=== PATIENT | male | born 1950 | race Caucasian/White ===

== ENCOUNTER 2025-03-25 05:52 | Observation (INO) ==
--- NOTE | 2025-03-19 09:34 | Anesthesiology Consultation ---
Date of Service March 19, 2025 Assessment & Plan (1) Encounter for pre-operative examination: Chart Review Chart Review: Acceptable Risk for Surgery and Patient NOT seen in Pre Admission Testing Please reach out to patient's PCP regarding his hyponatremia seen since at least December 2024 (sodium 132). Will order BMP for DOS. Consults Requested none History Surgery Operation Date: 03/25/25 07:30 Proposed Procedures p Robotic Assisted Laparoscopic Radical Retropubioc Prostatectomy, Possible Open, Possible Pelvic Lymph Node Dissection - Delmer Chris MD Height/Weight Height: 6 ft Weight: 90.718 kg Allergies Allergy/AdvReac Type Severity Reaction Status Date / Time No Known Allergies Allergy Verified 03/18/25 08:57 Medications Home Medications Medication Instructions Recorded Confirmed Last Taken hydrochlorothiazide 25 mg tablet 25 mg PO HS 03/25/20 03/18/25 Unknown lisinopril 40 mg tablet 40 mg PO HS 03/25/20 03/18/25 Unknown wheat dextrin 3 gram/3.5 gram oral 1.5 gm PO QAM 03/25/20 03/18/25 Unknown powder packet (Benefiber Clear Sugar Free(dextrin)) aspirin 81 mg tablet,delayed 81 mg PO HS 05/28/21 03/18/25 Unknown release (Adult Low Dose Aspirin) hydroxychloroquine 200 mg tablet 400 mg PO HS 05/28/21 03/18/25 Unknown amlodipine 5 mg tablet 5 mg PO HS 09/30/24 03/18/25 Unknown metoprolol succinate 25 mg 12.5 mg PO HS 01/31/25 03/18/25 Unknown tablet,extended release 24 hr prednisone 5 mg tablet 5 mg PO HS 02/18/25 03/18/25 Unknown cholecalciferol (vitamin D3) 50 100 mcg PO HS 03/18/25 03/18/25 Unknown mcg (2,000 unit) capsule (Vitamin D3) nicotine 21 mg/24 hr daily 1 patch transdermal DAILY 03/18/25 03/18/25 Unknown transdermal patch Past Medical History Medical History (Updated 03/19/25 @ 09:32 by Von Camp MD) Encounter for pre-operative examination [place] (hard of hearing) Hx of colonic polyps Prostate cancer dx 01/22/25 thru bx. 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 Past Family History Family History Mother , age 47yo Stroke Ruptured cerebral aneurysm Hypertension Father , 57yo Diabetes Hypertension Cardiac arrest Myocardial infarction Brother COPD (chronic obstructive pulmonary disease) Hypertension Venous insufficiency Sister Cerebral aneurysm Stroke Hypertension Skin cancer Sister Asthma Sister Asthma Daughter No problems noted. Son Hypertension Past Surgical History Surgical History Hx of cardiac cath 2004, failed stress test, [facility], [facility], no stents ~2011, failed stress test, [facility], no stents; f/u [facility] cardiology History of esophagogastroduodenoscopy (EGD) Hx of colonoscopy History of cataract surgery Bilateral H/O left knee surgery Torn meniscus History of surgery Repair of torn right bicep tendon Social History Smoking Status: Former smoker Smoking cigarettes per day: 2 PPD x 20yrs Do You Dip or Chew Tobacco: Yes (uses pouches occasionally; advised) Smoking End Date: age [age] Hx Alcohol Use: Yes Alcohol type: beer alcohol intake frequency: 0-2 drinks per day Hx Substance Use: No substance use type: does not use Testing Laboratory Results Laboratory Tests 12/23/24 00:00 Sodium 132 L Potassium 3.9 Chloride 99 Carbon Dioxide 27.9 BUN 15.0 Creatinine 0.86 Glucose 98 03/06/25: WBC 10, hgb 15.3, hct 44.2, plt 275 Na 132, K 4, Cl 97, bicarb 24.5, BUN 15, creat 1, glucose 100. Electrocardiogram Date: 03/06/25 sinus nereida. HR 55. LVH. Chest X-Ray Date: 03/06/25 no acute cardiopulmonary disease. Other Testing nuclear Stress test 02/19/25: Based upon EKG criteria, this test is negative. The nuclear imaging findings there is fixed inferior and basal inferolateral wall defect likely related to diaphragm attenuation defect. Study is normal. Cardiac clearance for this patient is low cardiac risk. EF 54%.
[2025-03-25] MEDS ORDERED: LACTATED RINGER'S 1,000 ML IV SCH (06:00)
[2025-03-25] MEDS: LR 15ML/HR IV SCH (06:10)
[2025-03-25] MEDS: HEPARIN SOD 5,000 UNIT/0.5 ML VIAL SQ SCH ×2 (06:24→21:00)
[2025-03-25] MEDS ORDERED: DEXAMETHASONE SOD INJ 4 MG/ML VIAL ONE (06:43)
[2025-03-25] MEDS ORDERED: ROCURONIUM BROMIDE 10 MG/ML 5 ML VIAL IV ONE (06:43)
[2025-03-25] MEDS ORDERED: GLYCOPYRROLATE 0.2 MG/ML VIAL ONE (06:43)
[2025-03-25] MEDS ORDERED: LIDOCAINE 2% 2 ML VIAL/AMP(20MG/ML) INFIL ONE (06:43)
[2025-03-25] MEDS ORDERED: PROPOFOL IV EMULSION 10 MG/ML 20 ML VIAL IV ONE (06:43)
[2025-03-25] MEDS ORDERED: ONDANSETRON INJ 2 MG/ML 2 ML VIAL ONE (06:43)
[2025-03-25] MEDS ORDERED: MIDAZOLAM HCL 1 MG/ML 2ML VIAL ONE (06:44)
[2025-03-25] MEDS ORDERED: SUGAMMADEX SODIUM 200 MG/2 ML VIAL IV ONE (06:45)
[2025-03-25] MEDS ORDERED: ATROPINE SULFATE 0.1 MG/ML 10ML SYR IV PRN (06:57)
[2025-03-25] MEDS ORDERED: ONDANSETRON INJ 2 MG/ML 2 ML VIAL IV PRN ×2 (06:57→11:42)
[2025-03-25 06:58] LABS: Anion Gap 9.0 (3-11); Blood Urea Nitrogen 13.0 mg/dl (6-23); Calcium 9.6 mg/dl (8.6-10.3); Carbon Dioxide 27.0 mmol/L (21-32); Chloride 96.0 mmol/L (98-107); Creatinine Clr Calc Pharmacy 79.4 ml/min; Glucose 104.0 mg/dl (70-99(Fasting)); Potassium 4.1 mmol/L (3.5-5.1); Sodium 132.0 mmol/L (136-145)
[2025-03-25] MEDS ORDERED: HYDROmorphone INJ 2 MG/ML SYR/VIAL IV PRN (06:58)
[2025-03-25] MEDS ORDERED: PROMETHAZINE HCL 6.25 MG in SODIUM CHLORIDE 0.9% 50 ML IV PRN (06:58)
--- NOTE | 2025-03-25 07:21 | History & Physical Bridge Note ---
Date of Service March 25, 2025 History & Physical Bridge Note I have examined the patient, reviewed the History & Physical and in the interval since the performance of the History & Physical I have noted the following changes of clinical significance: no changes noted
[2025-03-25] MEDS: ceFAZolin 3000MG 3,000 MG/72.5 ML BAG IV SCH (07:35)
[2025-03-25] MEDS ORDERED: ePHEDrine sulfate 50 MG/5 ML SYR ONE (07:58)
[2025-03-25] MEDS: FLOSEAL HEMOSTATIC MATRIX 5ML TOP ONE (10:12)
[2025-03-25] MEDS: SURGICEL ABSORB HEMOSTAT 2IN X 14IN TOP ONE (10:13)
[2025-03-25] MEDS: BUPIVACAINE 0.5 % 5 MG/1 ML MPF 30ML VIAL ONE (10:16)
[2025-03-25] MEDS: BUPIVACAINE LIPOSOME 1.3% 266 MG/20 ML VIAL ONE (10:17)
--- NOTE | 2025-03-25 10:51 | Operative Report ---
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 Periprostatic fat 2. Prostate and seminal vesicles 3. Left pelvic lymph nodes 4. Right pelvic lymph nodes Description of Procedure The patient was identified in the preoperative holding area, appropriate informed consents were reviewed and completed, and he was transported to the operating suite. Subcutaneous heparin was administered in the pre-operative holding area. Upon arrival in the operating suite, he received appropriate antibiotics and general anesthesia. He was positioned in dorsal lithotomy, a B&O suppository was inserted after digital rectal exam, and he was prepped and draped in standard fashion. A Ceja catheter was inserted in the sterile field. A Veress needle was passed per umbilicus with uniform insufflation of the abdomen to 15mmHg. He was placed in steep Trendelenburg position. A periumbilical incision was then made to accommodate a 12mm Visiport with 10mm 0degree laparoscope. Inspection of the abdomen was carried out, and there was no evidence of traumatic entry or injury secondary to the Veress needle. After confirming a clear anterior abdominal wall, ports were subsequently placed in standard robotic prostatectomy fashion without incident. To begin the robotic portion of the case, the left lateral aspect of the sigmoid was mobilized off of the left pelvic side wall to allow the pouch of Panchito to be appropriately visualized. I then made an incision in the pouch of Panchito, overlying the seminal vesicles. Both SVs as well as the ampullae of the vasa were entirely dissected, with the vasa transected 3cm from the prostate. The medial umbilical ligaments were then controlled with bipolar electrocautery just inferior to the umbilicus. Following cauterization, they were divided utilizing monopolar cautery. A peritoneal incision was carried from this location to the medial aspect of the internal inguinal rings bilaterally with care to avoid opening through the ring. This incision was concluded when the vas deferens was reached. Dissection of the bladder and prostate off of the posterior aspect of the pubic arch was completed allowing full visualization of the prostate. The fat overlying the prostate was removed en bloc and passed off the table as a specimen labeled "periprostatic fat". The endopelvic fascia was cleared during this portion of the procedure, and subsequently opened - first on the right and then the left. The incision through the endopelvic fascia began near the prostate-bladder junction and was carried to the apex with extreme care to preserve all lateral levator musculature as well as the periurethral musculature and sphincter complex. I additionally preserved the puboprostatic ligaments. I then controlled the DVC with a 2-0 V-lock suture in overlapping/figure of 8 fashion. The lymph node dissection was then conducted. External iliac vessels were identified on the pelvic side wall. The packet of fat and lymphatic tissue that resides just under the iliac vein was elevated and off of the vein with a split and roll technique. The packet was dissected laterally to the circumflex vein and distally to the obturator nerve which was preserved. The proximal aspect of the packet was carried towards the bifurcation of the iliac vessels. A combination of monopolar and bipolar cautery were used to assist with control. After completing the dissection on both sides, the packets were collected and passed off of the table as specimens labeled "pelvic lymph nodes". My attention then returned to the prostate, with identification of the bladder neck aided by gentle traction on the Ceja catheter and lateral to medial pressure at the presumed level of the bladder neck with the robotic instruments. An anterior cystotomy was made, the Ceja balloon deflated and the catheter guided through the incision to allow anterior retraction. I attempted to preserve maximal bladder neck musculature as I circumferentially dissected around the bladder neck. After incision through the posterior aspect of the mucosa, the dissection was carried through detrusor muscle until the previously dissected bilateral ampullae of the vasa were identified and delivered through this incision. The seminal vesicles were also brought through the incision. I completed my posterior dissection at that time. The only remaining connection of the prostate and bladder were at the vascular pedicles and neurovascular bundles. An incision in the lateral prostatic fascia was then made bilaterally to facilitate control of the vascular pedicles and preservation of the nerve bundles. Vasculature running along the posterior/lateral aspect of the prostate was preserved as well as the tissue containing the nerves. The pedicles were then controlled with a series of Weck clips. With this particular case I used 2 clips per side. Nerve sparing was excellent. The apical attachments of the prostate were remaining at that stage. The DVC was divided after control with bipolar cautery over the prostate. Continuous inspection from anterior and lateral views allowed me to closely follow the apical contour of the prostate and maximally preserve urethral length and tissue. The prostate was entirely freed at that point, and collected in an EndoCatch bag before being moved out of the field of vision. Hemostasis was confirmed and poin ts suture ligation of a small vessel on each neurovascular bundle was performed utilizing a 3 oh V-Loc suture. And anastomosis of the bladder and urethra was completed utilizing a double armed V-Lock stitch. A new Ceja catheter was inserted and the anastomosis tested with irrigation. There was no evidence of leak. A markel style stitch was placed bilaterally to functionally marsupialize the area of the lymph node dissection. The robot was undocked, the specimen extracted through expansion of the wil- umbilical camera port. The fascia was closed with a series of 0-PDS figure of 8 stitches. All incisions were closed with 4-0 Monocryl. Exparel was utilized infiltrate the fascial layer as well as the subcutaneous layer around each closure. All wounds were dressed with Dermabond. The case was concluded and the patient taken to the PACU in stable condition. Polo Mg and Elvia Stark assisted from incision to closure. There were no complications. I attest to the content of the Intraoperative Record and any orders documented therein. Any exceptions are noted below.
[2025-03-25 11:13] LABS: Hematocrit (blood only) 40.3 % (42.0-52.0); Hemoglobin 14.4 g/dl (14.0-18.0); Immature Granulocytes # (auto) 0.14 K/uL (0.01-0.20); Immature Granulocytes % (auto) 0.8 %; Mean Corpuscular Hemoglobin 31.3 pg (25.0-34.0); Mean Corpuscular Volume 87.6 fL (80.0-100.0); Platelet Count 247 K/uL (130-400); RDW Standard Deviation 38.0 fL (36.4-46.3); Red Blood Count 4.60 M/uL (4.70-6.10); White Blood Count 16.98 K/ul (4.8-10.8)
[2025-03-25 11:26] LABS: Anion Gap 7.0 (3-11); Blood Urea Nitrogen 15.0 mg/dl (6-23); Calcium 9.1 mg/dl (8.6-10.3); Carbon Dioxide 28.0 mmol/L (21-32); Chloride 97.0 mmol/L (98-107); Creatinine Clr Calc Pharmacy 66.2 ml/min; Glucose 147.0 mg/dl (70-99(Fasting)); Potassium 4.2 mmol/L (3.5-5.1); Sodium 132.0 mmol/L (136-145)
[2025-03-25] MEDS ORDERED: ACETAMINOPHEN 500 MG TAB PO PRN (11:42)
[2025-03-25] MEDS ORDERED: HYDROmorphone INJ 0.5 MG/0.5 ML SYR IV PRN ×2 (11:42)
[2025-03-25] MEDS: SODIUM CHLORIDE 0.9% 1,000 ML IV SCH (12:33)
--- NOTE | 2025-03-25 13:37 | Anesthesiology Progress Note ---
Date of Service March 25, 2025 Anesthesia Post Procedure Vital Signs Vital Signs: Temp Pulse Pulse Resp BP BP Pulse Ox 03/25/25 13:35 36.4 C L 74 18 138/82 98 03/25/25 12:47 36.4 C L 74 17 146/74 H 96 03/25/25 12:15 36.5 C 69 16 143/80 H 95 03/25/25 11:30 03/25/25 11:20 68 20 133/86 95 03/25/25 11:10 36.7 C 72 21 158/83 H 94 03/25/25 11:00 70 21 160/82 H 93 03/25/25 10:50 73 19 143/75 H 94 03/25/25 10:40 74 14 131/69 97 03/25/25 10:34 36.1 C L 65 12 111/59 L 98 03/25/25 06:16 36.6 C 62 20 175/90 H 98 O2 Del Method O2 Flow Rate 03/25/25 13:35 Nasal Cannula 2 03/25/25 12:47 Nasal Cannula 2 03/25/25 12:15 Nasal Cannula 2 03/25/25 11:30 Nasal Cannula 2 03/25/25 11:20 Nasal Cannula 2 03/25/25 11:10 Nasal Cannula 2 03/25/25 11:00 Nasal Cannula 2 03/25/25 10:50 Oxymask 5 03/25/25 10:40 Oxymask 10 03/25/25 10:34 Oxymask 10 03/25/25 06:16 Room Air Pain Intensity Lower Abdomen: Pain Intensity: 7 Transfer of Care Handoff Completed per policy Notes Mental Status: alert / awake / arousable and participated in evaluation Patient Amnestic to Procedure: Yes Nausea / Vomiting: adequately controlled Pain: adequately controlled Airway Patency, RR, SpO2: stable & adequate BP & HR: stable & adequate Hydration State: stable & adequate Anesthetic Complications: no major complications apparent and Pt Satisfied with anesthetic care
[2025-03-25] MEDS: OXYBUTYNIN CHLORIDE XL 5 MG TABCR PO SCH (15:42)
[2025-03-25] MEDS: DOCUSATE SODIUM 100 MG CAP PO SCH (20:58)
[2025-03-25] MEDS: HYDROXYCHLOROQUINE SULFATE 200 MG TAB PO SCH (20:58)
[2025-03-25] MEDS: METOPROLOL SUCC 25MG EXT REL TAB PO SCH (20:59)
[2025-03-25] MEDS: CHOLECALCIFEROL 25 MCG (1000 UNITS) TAB PO SCH (20:59)
[2025-03-25] MEDS: ASPIRIN 81 MG ECTAB PO SCH (21:00)
[2025-03-25] MEDS: hydroCHLOROthiazide 25 MG TAB PO SCH (21:00)
[2025-03-26 06:00] LABS: Hematocrit (blood only) 37.1 % (42.0-52.0); Hemoglobin 13.5 g/dl (14.0-18.0); Immature Granulocytes # (auto) 0.08 K/uL (0.01-0.20); Immature Granulocytes % (auto) 0.6 %; Mean Corpuscular Hemoglobin 31.7 pg (25.0-34.0); Mean Corpuscular Volume 87.1 fL (80.0-100.0); Platelet Count 231 K/uL (130-400); RDW Standard Deviation 37.5 fL (36.4-46.3); Red Blood Count 4.26 M/uL (4.70-6.10); White Blood Count 13.70 K/ul (4.8-10.8)
[2025-03-26 06:20] LABS: Anion Gap 8.0 (3-11); Blood Urea Nitrogen 12.0 mg/dl (6-23); Calcium 9.2 mg/dl (8.6-10.3); Carbon Dioxide 27.0 mmol/L (21-32); Chloride 96.0 mmol/L (98-107); Creatinine Clr Calc Pharmacy 85.0 ml/min; Glucose 111.0 mg/dl (70-99(Fasting)); Potassium 4.4 mmol/L (3.5-5.1); Sodium 131.0 mmol/L (136-145)
[2025-03-26] MEDS: REMOVE NICODERM PATCH SCH (07:19)
--- NOTE | 2025-03-26 08:25 | Urology Progress Note ---
Date of Service March 26, 2025 Assessment & Plan (1) Prostate cancer: Plan: Postop day #1 status post robotic prostatectomy Already ambulatory, tolerating a diet Anxious to go home Labs appropriate Abdomen soft Plan for discharge later today Admission and Anticipated Discharge Date Admission Date: March 25, 2025 Subjective Subjectively doing great Some irritation from the catheter but no other major complaints Pain is well-controlled He is ambulatory He is already anxious to go home Physical Exam Physical Exam: Incisions all look great Results & Data Vital Signs (Past 12 Hours) Vital Signs Temp Pulse Pulse Resp BP Pulse Ox O2 Del Method 03/26/25 08:02 36.5 C 60 16 153/76 H 98 Room Air 03/26/25 03:00 36.7 C 66 18 147/67 H 97 Room Air 03/25/25 23:25 36.7 C 76 18 146/72 H 97 Room Air 03/25/25 21:00 Room Air PG Care Time/CCT Total # of Minutes Spent Total Time Spent with Patient: Total time spent is greater than 50% in coordination of care (as documented) at patient's floor/unit and/or counseling patient: Coding Level of Care Code None Diagnoses Prostate cancer C61
[2025-03-26] MEDS: NICOTINE 21 MG/24 HR TDSY TD SCH (10:43)
[2025-03-26 11:47] VITALS: PULSE 62; RESP 18; TEMP 97.9; O2SAT 99
[2025-03-26 11:51] VITALS: BP 146/74
--- NOTE | 2025-03-28 17:07 | Discharge Summary ---
Date of Service March 28, 2025 Admission HPI Per Admitting Provider 75-year-old male with prostate cancer who presented for robotic prostatectomy with Dr. Chris Admission Exam Per Admitting Provider Constitutional well developed and well nourished Neck neck nontender Respiratory normal respiratory effort; no respiratory distress and does not use accessory muscles Cardiovascular Rate/Rhythm: regular rate Vessels: radial pulses present Extremities: no edema Gastrointestinal (Abdomen) Inspection/Auscultation: abdomen normal to inspection Percussion/Palpation: abdomen soft; abdomen nontender and no guarding Musculoskeletal Head/Neck/Chest: normocephalic and head atraumatic Extremities: extremities normal to inspection Skin no rashes and no lesions Trauma: no evidence of skin trauma Neurologic awake; not obtunded Speech / Cognition: normal speech Motor/Sensory: no tremor Psychiatric Orientation: alert and oriented x 3 Genitourinary no CVA tenderness Lymphatic no lymphadenopathy Principal Diagnosis Prostate Cancer Discharge Exam Constitutional well developed and well nourished; no acute distress Respiratory normal respiratory effort; no respiratory distress and no labored breathing Gastrointestinal (Abdomen) Incisions appropriate Musculoskeletal Head/Neck/Chest: normocephalic Skin no rashes, warm and dry Neurologic moves all extremities and awake Psychiatric A+Ox3, euthymic affect Genitourinary Ceja intact draining clear yellow urine Discharge Data Allergies Allergy/AdvReac Type Severity Reaction Status Date / Time No Known Allergies Allergy Verified 03/25/25 06:13 Procedures Performed Operation Date: 03/25/25 07:30 Actual Procedures p Robotic Assisted Laparoscopic Radical Retropubic Prostatectomy, Pelvic Lymph Node Dissection(Not Applicable) - Delmer Chris MD Hospital Course (1) Prostate cancer: Plan 75-year-old male admitted status post robotic prostatectomy. Patient tolerated procedure well. No issues postoperatively. He remained afebrile with stable vitals. Labs were appropriate. He tolerated a diet. Ambulated without issue. Reported minimal pain. Ceja catheter with appropriate output and urine was clear yellow. Patient was discharged home on postop day #1 with a Ceja catheter in place. He was in stable condition at time of discharge. Discharge instructions were reviewed and all questions were answered. Total Time Total Time Spent Total Time Spent (In Minutes): 15 Discharge Plan Discharge Items Patient Disposition: Home - Self-Care Reason For Visit: Malignant Neoplasm of Prostate Discharge Diagnosis: Prostate Cancer Activity: Per Instructions section Non-emergency contact: Surgeon and Urologist Call non-emergency contact if: you have any medication questions, your symptoms worsen, your pain is not controlled, you have a fever, your wound has increased redness, your wound has increased drainage and your wound pain has increased Follow-up/Referrals: Dez Payne [Primary Care Provider] - Diet: Regular Addtl Attending Provider Instructions: Please take all medications as prescribed and keep all follow-ups as scheduled. Please call our office at [phone] with any questions, concerns or need to reschedule appointments for any reason. We are happy to assist you We have sent an antibiotic to your pharmacy of choice. Please begin antibiotic as prescribed the day BEFORE your scheduled voiding trial at [facility]. Please continue antibiotic every 12 hours through the day AFTER your voiding trial. Activity: We recommend having someone with you for the first few days after surgery to help care for you. For the first 2 weeks after surgery, we would like you to get up and walk around your house. However, we recommend limit physical activity that would increase your heart rate. This will allow your body to rest and heal. Take naps if you feel tired. Don't lift anything heavier than 10 pounds, mow the law or ride a bicycle until your follow-up appointment. Please avoid long car rides. Home Care: Unless directed otherwise, drink 6 to 8 glasses of water a day (enough to keep your urine light colored). This will also help keep a healthy flow of urine. We recommend using a stool softener for the first two weeks to avoid constipation. Ceja Catheter or Suprapubic Catheter care: Keep the catheter well secured with either a leg back or leg strap with large bag. Empty your bag when it's about half full. You may notice some blood in the bag. This is normal after surgery and while the catheter is in place. Use mild soap (such as Dove or Dial) and water to wash the catheter and the head of your penis daily, or more frequently if needed. Return to your normal diet, we encourage good protein intake to promote healing. You may shower as normal. Please avoid tub baths or soaking until catheter removed and incisions well healed. Wearing sweat pants while you have the catheter is recommended, they will be more comfortable. Follow-up Your follow up appointments for having your catheter removed, and follow up with your physician should already be scheduled. If you have any questions regarding this, please contact our office. Your final pathology report will be discussed at your physician follow-up appointment. Call [facility] at [phone] right away if you have any of the following: Chest pain or trouble breathing (call 911 or go to the hospital) Fever of 101F or higher, uncontrolled vomiting Heavy bleeding, clots, or bright red blood from the catheter Catheter that falls out or stops draining Foul-smelling discharge from your catheter Redness, swelling, warmth, or increased pain at your incision site Drainage, pus, or bleeding from your incision Pending Studies at Discharge: Yes Stand-Alone Forms: My [facility] [employer], Smoking Cessation Medications and DC Order Prescriptions: New ciprofloxacin HCl 500 mg tablet 500 mg PO BID 3 Days Qty: 6 0RF oxycodone 5 mg tablet 5 mg PO Q8H PRN (Reason: pain) Qty: 7 0RF Continued prednisone 5 mg tablet 5 mg PO HS hydroxychloroquine 200 mg tablet 400 mg PO HS aspirin [Adult Low Dose Aspirin] 81 mg tablet,delayed release (DR/EC) 81 mg PO HS lisinopril 40 mg tablet 40 mg PO HS hydrochlorothiazide 25 mg tablet 25 mg PO HS Benefiber Clear SF (dextrin) 3 gram/3.5 gram powder in packet 1.5 gm PO QAM Rx Instructions: two tablespoons in coffee in AM metoprolol succinate 25 mg tablet extended release 24 hr 12.5 mg PO HS amlodipine 5 mg tablet 5 mg PO HS cholecalciferol (vitamin D3) [Vitamin D3] 50 mcg (2,000 unit) Capsule 100 mcg PO HS nicotine 21 mg/24 hr Patch 24 Hour 1 patch TRANSDERMAL DAILY No Action oxybutynin chloride 5 mg tablet 5 mg PO DAILY Qty: 30 2RF Discharge Orders: Discharge Order (Routine); Ordered 03/26/25 Ordered By: Elvia Pinzon/Other Patient Handouts: Indwelling Urinary Catheter Dc, Leg Bag Care Dc, Ceja Catheter Male Ch Admission Data Admit Date/Time: 03/25/25 10:42 Attending Provider: Delmer Chris Admit Provider: Delmer Chris Primary Care Provider: Dez Payne Other Interventions: Discharge Summary Assessment (RN) Last Done: 03/26/25 11:50 Coding Level of Care Code 08645 IN/OBS DISCH 30 MIN/LESS Diagnoses Prostate cancer C61
== END 2025-03-26 13:25 | disposition home or self-care (01) ==
LOC: ASU 05:52 → 3E 10:42 → INTOOBSV 10:42